=== PATIENT | male | born 1935 | race Caucasian/White ===

== ENCOUNTER 2022-08-15 08:49 | Outpatient (CLI) | payer MEDICARE, BC ==
[~2022-08-15 08:49] MED LIST: Magnevist 469MG/ML 20 ML VIAL ONE
== END 2022-08-15 08:50 | disposition home or self-care (01) ==
LOC: CSHMRI 08:49
PROVIDERS: ATTEND Radiology Radiation Oncology
DX: C61 Malignant neoplasm of prostate (principal)
CPT/HCPCS: 72197